=== PATIENT | male | born 1960 | race Caucasian/White ===

== ENCOUNTER 2017-03-08 21:47 | Emergency (ER) | payer OTHER ==
[~2017-03-08] VITALS: Ht 177.8 cm; Wt 106.1 kg
[~2017-03-08 21:47] MED LIST: ASPI81TA82 PO; CEPH500C3 PO; CLOP75 PO; DIAB1.25 PO; FOLIPOW21 PO; GLUCTAB PO; HALO0.5T PO; OXYC-360 PO; PROP10TA26 PO; SIMV20 PO; TAB-TAB PO; VITA20002 PO
[2017-03-08 21:49] VITALS: BP 161/95; PULSE 92; RESP 16; TEMP 97.9; O2SAT 98
[2017-03-08 22:21] VITALS: BP 142/84; PULSE 84; RESP 20; O2SAT 98
[2017-03-08] MEDS ORDERED: KETOROLAC TROMETHAMINE 30 MG/ML (IVP) VIAL IVP ONE (22:30)
[2017-03-08] MEDS ORDERED: SODIUM CHLORIDE 0.9% FLUSH 10 ML FLUSH IVF PRN (22:30)
[2017-03-08] MEDS ORDERED: SODIUM CHLOR 0.9% 1000 ML INJ 1,000 ML IV SCH (22:30)
[2017-03-08] MEDS ORDERED: ONDANSETRON HCL 4 MG/2 ML VIAL IVP ONE (22:30)
[2017-03-08 22:33] LABS: AUTOMATED NEUTROPHIL # 4.4 TH/MM3 (1.8-7.7); BASOPHIL # 0.1 TH/MM3 (0-0.2); BASOPHIL % 0.9 % (0.0-2.0); EOSINOPHIL # 0.5 TH/MM3 (0-0.4); EOSINOPHIL % 6.3 % (0.0-4.0); HEMATOCRIT 46.9 % (39.0-51.0); HEMO FLAGS DIFF FINAL; LYMPHOCYTE # 1.7 TH/MM3 (1.0-4.8); MEAN CELL VOLUME 92.8 FL (80.0-100.0); MEAN CORPUSCULAR HEMOGLOBIN 31.2 PG (27.0-34.0); MEAN CORPUSCULAR HGB CONC 33.6 % (32.0-36.0); MONO % 7.6 % (0.0-8.0); NEUT % 62.2 % (16.0-70.0); PLATELET COUNT 132 TH/MM3 (150-450); RED BLOOD COUNT 5.05 MIL/MM3 (4.50-5.90); RED CELL DISTRIBUTION WIDTH 13.2 % (11.6-17.2); WHITE BLOOD COUNT 7.3 TH/MM3 (4.0-11.0)
[2017-03-08 22:46] LABS: BICARBONATE 25.6 MEQ/L (21.0-32.0)
--- NOTE | 2017-03-08 22:59 | PD ---
HPI Chief Complaint: Flank/Kidney Pain Time Seen by Provider: 22:24 Travel History International Travel<30 days: No Contact w/Intl Traveler<30days: No Traveled to known affect area: No History of Present Illness HPI 57-year-old male presents to the emergency department by private transportation complaining of left flank pain left lower quadrant abdominal pain. Patient states prior history of kidney stones. Last exacerbation was one year ago. Symptoms are right-sided 1 year ago. Patient rates pain as moderate to severe. Patient's had nausea without vomiting. Patient is diabetic and takes metformin. Patient denies known history of abdominal aortic aneurysm but has had three-vessel CABG in the past. 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 Denies fever chills. Patient has taken no medication for symptomatic relief. PFSH Past Medical History Narrative Medical CAD dyslipidemia diabetes CABG kidney stones hypertension eyes surgery alcohol use no tobacco use; nursing notes reviewed Cancer: No Cardiovascular Problems: Yes High Cholesterol: Yes Chest Pain: Yes Diabetes: Yes Patient Takes Glucophage: Yes (1800 03/08/17) Diminished Hearing: No GERD: Yes Glaucoma: No Genitourinary: No Hepatitis: No Hiatal Hernia: No Hypertension: Yes Immune Disorder: No Musculoskeletal: No Neurologic: No Psychiatric: No (DENIES) Reproductive: No Respiratory: Yes Integumentary: Yes (STERISTRIPS TO LOWER LEG INCISION SITES.) Thyroid Disease: No Tetanus Vaccination: Unknown Influenza Vaccination: No Past Surgical History Cardiac Surgery: Yes (CABG 06-05-11 BYPASS 3 VESSEL) Coronary Artery Bypass Graft: Yes Eye Surgery: Yes (2 ON LEFT EYE, 3 ON RIGHT EYE) Oral Surgery: Yes Pacemaker: No Tonsillectomy: Yes Other Surgery: Yes Social History Alcohol Use: Yes (2 DRINKS PER DAY) Tobacco Use: No Substance Use: No Allergies-Medications (Allergen,Severity, Reaction): Coded Allergies: No Known Allergies (Unverified , 03/08/17) Reported Meds & Prescriptions Reported Meds & Active Scripts Active Percocet (Oxycodone-Acetaminophen) 5-325 mg Tab 1 Tab PO Q6H PRN Phenergan (Promethazine HCl) 25 Mg Tablet 25 Mg PO Q6H PRN Flomax (Tamsulosin HCl) 0.4 Mg Cap 0.4 Mg PO HS Reported Zocor (Simvastatin) 20 Mg Tab 20 Mg PO DAILY Haloperidol 0.5 Mg Tab 0.5 Mg PO Diabeta 1.25 mg (Glyburide) 1.25 Mg Tab 1.25 Mg PO Inderal (Propranolol HCl) 10 Mg Tab 10 Mg PO BID Percocet (Oxycodone/Acetaminophen) 5 Mg/325 Mg Tab 1 Tab PO Q6HPRN FOR PAIN Aspir-81 (Aspirin) 81 Mg Tab 81 Mg PO DAILY Keflex (Cephalexin Monohydrate) 500 Mg Cap 500 Mg PO QID Vitamin D-3 (Cholecalciferol) 2 000 Tab 2,000 Unit PO DAILY Plavix (Clopidogrel Bisulfate) 75 Mg Tab 75 Mg PO DAILY [Folic Acid] 1 Mg PO DAILY Multivitamin (Multivitamins) 1 Tab Tab 1 Tab PO DAILY Glucophage XR 24 HR (Metformin HCl) 500 Mg Tab 500 Mg PO BID Review of Systems Except as stated in HPI: all other systems reviewed are Neg General / Constitutional: No: Fever, Chills HENT: No: Congestion Cardiovascular: No: Chest Pain or Discomfort Gastrointestinal: Positive: Nausea, Abdominal Pain, No: Vomiting Genitourinary: Positive: Flank Pain (left lower quadrant) Musculoskeletal: No: Myalgias, Arthralgias ( left flank) Skin: No Rash Neurologic: No: Weakness Psychiatric: No: Anxiety Endocrine: No: Heat Intolerance Hematologic/Lymphatic: No: Easy Bruising Physical Exam Narrative GENERAL: Well-developed well-nourished male in no acute distress no respiratory distress SKIN: Warm and dry. HEAD: Normocephalic. EYES: No scleral icterus. No injection or drainage. NECK: Supple, trachea midline. No JVD or lymphadenopathy. CARDIOVASCULAR: Regular rate and rhythm without murmurs, gallops, or rubs. RESPIRATORY: Breath sounds equal bilaterally. No accessory muscle use. GASTROINTESTINAL: Abdomen soft, non-tender, nondistended. No palpable pulsatile mass. MUSCULOSKELETAL: No cyanosis, or edema. BACK: Nontender without obvious deformity. Left CVA tenderness. Data Data Last Documented VS Vital Signs Date Time Temp Pulse Resp B/P Pulse Ox O2 Delivery O2 Flow Rate FiO2 03/08/17 22:21 84 20 142/84 98 03/08/17 21:49 97.9 Orders Complete Blood Count With Diff (03/08/17 22:24) Basic Metabolic Panel (Bmp) (03/08/17 22:24) Urinalysis - C+S If Indicated (03/08/17 22:24) Ct Abd/Pel W/O Iv Contrast (03/08/17 22:24) Ecg Monitoring (03/08/17 22:24) Iv Access Insert/Monitor (03/08/17 22:24) Ketorolac Inj (Toradol Inj) (03/08/17 22:30) Ondansetron Inj (Zofran Inj) (03/08/17 22:30) Sodium Chloride 0.9% Flush (Ns Flush) (03/08/17 22:30) Sodium Chlor 0.9% 1000 Ml Inj (Ns 1000 M (03/08/17 22:30) Labs Laboratory Tests Test 03/08/17 03/09/17 22:30 00:00 White Blood Count 7.3 TH/MM3 Red Blood Count 5.05 MIL/MM3 Hemoglobin 15.8 GM/DL Hematocrit 46.9 % Mean Corpuscular Volume 92.8 FL Mean Corpuscular Hemoglobin 31.2 PG Mean Corpuscular Hemoglobin 33.6 % Concent Red Cell Distribution Width 13.2 % Platelet Count 132 TH/MM3 Mean Platelet Volume 8.7 FL Neutrophils (%) (Auto) 62.2 % Lymphocytes (%) (Auto) 23.0 % Monocytes (%) (Auto) 7.6 % Eosinophils (%) (Auto) 6.3 % Basophils (%) (Auto) 0.9 % Neutrophils # (Auto) 4.4 TH/MM3 Lymphocytes # (Auto) 1.7 TH/MM3 Monocytes # (Auto) 0.6 TH/MM3 Eosinophils # (Auto) 0.5 TH/MM3 Basophils # (Auto) 0.1 TH/MM3 CBC Comment DIFF FINAL Differential Comment Sodium Level 136 MEQ/L Potassium Level 4.0 MEQ/L Chloride Level 102 MEQ/L Carbon Dioxide Level 25.6 MEQ/L Anion Gap 8 MEQ/L Blood Urea Nitrogen 15 MG/DL Creatinine 1.10 MG/DL Estimat Glomerular Filtration 69 ML/MIN Rate Random Glucose 150 MG/DL Calcium Level 8.9 MG/DL Urine Color YELLOW Urine Turbidity CLEAR Urine pH 5.5 Urine Specific [place] 1.018 Urine Protein NEG mg/dL Urine Glucose (UA) 100 mg/dL Urine Ketones TRACE mg/dL Urine Occult Blood LARGE Urine Nitrite NEG Urine Bilirubin NEG Urine Leukocyte Esterase NEG Urine RBC 25-49 /hpf Urine WBC 0-2 /hpf Urine Squamous Epithelial 0-5 /hpf Cells Urine Bacteria NONE /hpf Microscopic Urinalysis Comment CULT NOT INDICATED MDM Medical Decision Making Medical Screen Exam Complete: Yes Emergency Medical Condition: Yes Medical Record Reviewed: Yes Interpretation(s) CT abd/pel kidney stone protocol CONCLUSION: 1. 4 mm left ureterovesical junction stone with moderate left hydronephrosis 2. Appendicolith in normal size appendix Kit Fatima MD on March 08, 2017 at 23:32 Board Certified Radiologist. This report was verified electronically. CBC & BMP Diagram 03/08/17 22:30 Vital Signs Date Time Temp Pulse Resp B/P Pulse Ox O2 Delivery O2 Flow Rate FiO2 03/08/17 22:21 84 20 142/84 98 03/08/17 21:49 97.9 92 16 161/95 98 UA: Large blood culture not indicated Differential Diagnosis Renal colic, obstructive uropathy, UTI, diverticulitis, abdominal aortic aneurysm Narrative Course IV access obtained specimens collected sent for resulting urinalysis requested CT kidney stone protocol ordered patient administered Zofran 4 mg IV Toradol 30 mg IV and maintenance IV fluids CBC with automated differential and metabolic panel values grossly within normal range CT abdomen and pelvis is remarkable for 4 mm left UVJ stone with hydronephrosis and hydroureter as well as 5 mm nephrolithiasis and appendicoliths noted in a normal-sized appendix patient is asymptomatic on the right side no right lower quadrant tenderness no guarding no rebound total white cell count is in normal range with normal range automated differential no fever no chills sudden onset of symptoms which would be atypical presentation for appendicitis symptoms consistent with obstructive uropathy consistent with identified UVJ stone with hydronephrosis and hydroureter. Patient also administered a dose of Flomax 0.4 mg by mouth. Patient is stable for outpatient management encouraged to follow-up with urologist prescriptions for Flomax Phenergan and Percocet provided. Diagnosis Primary Impression: Acute unilateral obstructive uropathy Additional Impression: Left nephrolithiasis Referrals: Urologist call for appointment Patient Instructions: General Instructions Med/Other Pt SpecificInfo: Prescription(s) given Scripts Oxycodone-Acetaminophen (Percocet)5-325 mg Tab1 Tab PO Q6H PRN (PAIN) #10 TAB Ref 0 Prov:Xochitl Clement MD 03/08/17 Promethazine (Phenergan)25 Mg [id number] Mg PO Q6H PRN (NAUSEA OR VOMITING) #10 TAB Ref 0 Prov:Xochitl Clement MD 03/08/17 Tamsulosin (Flomax)0.4 Mg Cap0.4 Mg PO HS #7 CAP Ref 0 Prov:Xochitl Clement MD 03/08/17 Disposition: 01 DISCHARGE HOME Condition: Stable Xochitl Clement MD Mar 08, 2017 22:59
[2017-03-08 23:33] VITALS: BP 138/84; PULSE 84; RESP 20; O2SAT 99
--- NOTE | 2017-03-08 23:39 | RADRPT ---
EXAM DATE/TIME: 03/08/2017 22:46 [facility] COMPARISON: No previous studies available for comparison. INDICATIONS : Nausea, vomiting. Prior history of renal calculi. Left flank pain. ORAL CONTRAST: No oral contrast ingested. RADIATION DOSE: 25.63 CTDIvol (mGy) MEDICAL HISTORY : Diabetes mellitus type 2. Renal calculi. Gastroesophageal reflux disease. SURGICAL HISTORY : CABG Penile pump ENCOUNTER: Initial ACUITY: 1 day PAIN SCALE: 7/10 LOCATION: Left flank TECHNIQUE: Volumetric scanning of the abdomen and pelvis was performed. Using automated exposure control and ad justment of the mA and/or kV according to patient size, radiation dose was kept as low as reasonably achievable to obtain optimal diagnostic quality images. DICOM format image data is available electro nically for review and comparison. FINDINGS: Examination of the lung bases demonstrates no abnormality. No pleural fluid is identified. No pulmona ry nodules are present. The liver and spleen are normal in size and no focal defects are identified. There is a single stone within the gallbladder without wall thickening or pericholecystic fluid measu ring 1 mm. The pancreas demonstrates no evidence of mass and there is no dilatation of the pancreatic duct. The adrenal glands are unremarkable. There are multiple bilateral nonobstructing right renal s tones the largest measuring 5 mm. There is left hydronephrosis and hydroureter to the ureterovesical junction where there is a 4 mm stone. Examination of the pelvis demonstrates no evidence of free fluid or pelvic mass. No abnormally enlarg ed inguinal or retroperitoneal lymph nodes are present. The bladder demonstrates mild diffuse bladder wall thickening. An appendicolith is present in a normal sized appendix. Penile prosthesis is presen t with reservoir in the left hemipelvis. CONCLUSION: 1. 4 mm left ureterovesical junction stone with moderate left hydronephrosis 2. Appendicolith in normal size appendix Kit Fatima MD on March 08, 2017 at 23:32 Board Certified Radiologist. This report was verified electronically.
[2017-03-08] MEDS ORDERED: PROM25TA10 PO (23:49)
[2017-03-08] MEDS ORDERED: TAMS5CAP PO (23:49)
[2017-03-08] MEDS ORDERED: PERC5TAB12 PO (23:49)
[2017-03-09 00:26] LABS: BLOOD, URINE LARGE (NEG); GLUCOSE,URINE 100 mg/dL (NEG); KETONE, URINE TRACE mg/dL (NEG); NITRITE,URINE NEG (NEG); PH, URINE 5.5 (5.0-8.5)
[2017-03-09 00:28] LABS: URINE COLOR YELLOW (YELLW/STRAW)
[2017-03-09 00:32] LABS: COMMENT (UR) CULT NOT INDICATED; CULTURE IF INDICATED CULT NOT INDICATED; SQUAMOUS EPITHELIAL CELL URINE 0-5 /hpf (0-5); WBC, URINE 0-2 /hpf (0-5)
[2017-03-09] MEDS ORDERED: ACETAMINOPHEN/HYDROcodone 325 MG/5 MG TAB PO ONE (00:45)
[2017-03-09 01:32] VITALS: BP 118/84
== END 2017-03-09 01:40 | disposition home or self-care (01) ==
LOC: PHED 21:47
DX: N13.2 Hydronephrosis with renal and ureteral calculous obstruction (principal); K38.1 Appendicular concretions; E11.9 Type 2 diabetes mellitus without complications; I10 Essential (primary) hypertension; Z79.02 Long term (current) use of antithrombotics/antiplatelets; Z79.82 Long term (current) use of aspirin; Z79.84 Long term (current) use of oral hypoglycemic drugs
CPT/HCPCS: 74176; 80048; 81001; 85025; 96361; 96374; 96375; 99285; J1885; J2405; J7030

== ENCOUNTER 2017-10-17 15:48 | Emergency (ER) | payer OTHER ==
[~2017-10-17] VITALS: Ht 177.8 cm; Wt 102.0 kg
[~2017-10-17 15:48] MED LIST changes: -ASPI81TA82 PO; -CEPH500C3 PO; +PERC5TAB12 PO; +PROM25TA10 PO; +TAMS5CAP PO
[2017-10-17 15:54] VITALS: BP 145/86; PULSE 117; RESP 16; TEMP 97.3; O2SAT 98
[2017-10-17] MEDS ORDERED: OMEP20TA93 PO (16:10)
[2017-10-17] MEDS ORDERED: ATOR20TA15 PO (16:10)
[2017-10-17] MEDS ORDERED: METF500T PO (16:10)
[2017-10-17] MEDS ORDERED: SODIUM CHLOR 0.9% 1000 ML INJ 1,000 ML IV SCH (16:14)
[2017-10-17] MEDS ORDERED: ONDANSETRON HCL 4 MG/2 ML VIAL IVP ONE (16:15)
[2017-10-17] MEDS ORDERED: SODIUM CHLORIDE 0.9% FLUSH 10 ML FLUSH IV FLUSH PRN (16:15)
[2017-10-17] MEDS ORDERED: ALUMINUM/MAGNESIUM/SIMETH 30 ML CUP PO ONE (16:15)
[2017-10-17] MEDS ORDERED: MORPHINE SULFATE 8 MG/ML INJ IV PUSH ONE (16:15)
[2017-10-17] MEDS ORDERED: LIDOCAINE VISCOUS 2% SOLN 15 ML UDC PO ONE (16:15)
--- NOTE | 2017-10-17 16:17 | PD ---
HPI Chief Complaint: GI Complaint Time Seen by Provider: 15:57 Travel History International Travel<30 days: No Contact w/Intl Traveler<30days: No Traveled to known affect area: No History of Present Illness HPI Patient is a 57-year-old male with a history of pancreatitis he thinks from too much alcohol which was one episode years ago presents emergency department with nausea vomiting diarrhea burning epigastric discomfort since the middle the night last night. Patient states hurting him when he takes a deep breath but identifies the pain is localized to the epigastric region below the diaphragm. Patient is blind but states he did not taste any blood in his emesis, is covered by his friend. He states the pain is discomfort is been gradually worsening all day, moderate in intensity, epigastric, no radiation, associated signs and symptoms in context as above PFSH Past Medical History Cancer: No Cardiovascular Problems: Yes High Cholesterol: Yes Chest Pain: Yes Diabetes: Yes Patient Takes Glucophage: Yes Diminished Hearing: No GERD: Yes Glaucoma: No Genitourinary: No Hepatitis: No Hiatal Hernia: No Hypertension: Yes Immune Disorder: No Musculoskeletal: No Neurologic: No Psychiatric: No (DENIES) Reproductive: No Respiratory: Yes Integumentary: Yes (STERISTRIPS TO LOWER LEG INCISION SITES.) Thyroid Disease: No Past Surgical History Cardiac Surgery: Yes (CABG 06-05-11 BYPASS 3 VESSEL) Coronary Artery Bypass Graft: Yes Eye Surgery: Yes (2 ON LEFT EYE, 3 ON RIGHT EYE) Genitourinary Surgery: Yes (penile implant) Oral Surgery: Yes Pacemaker: No Tonsillectomy: Yes Other Surgery: Yes Social History Alcohol Use: Yes (2 DRINKS PER DAY) Tobacco Use: No (quit 7 years ago ) Substance Use: No Allergies-Medications (Allergen,Severity, Reaction): Coded Allergies: No Known Allergies (Unverified Adverse Reaction, Unknown, 10/17/17) Reported Meds & Prescriptions Reported Meds & Active Scripts Active Zofran Odt (Ondansetron Odt) 4 Mg Tab 4 Mg SL Q6HR PRN Reported Omeprazole 20 Mg Tab 20 Mg PO DAILY Atorvastatin (Atorvastatin Calcium) 20 Mg Tab 20 Mg PO HS Metformin (Metformin HCl) 500 Mg Tab 500 Mg PO BIDPC Review of Systems Except as stated in HPI: all other systems reviewed are Neg Physical Exam Narrative GENERAL: Well-developed, well-nourished, appears uncomfortable peer SKIN: Focused skin assessment warm/dry. HEAD: Atraumatic. Normocephalic. EYES: Not examined, patient is blind. ENT: No nasal bleeding or discharge. Mucous membranes pink and moist. NECK: Trachea midline. No JVD. CARDIOVASCULAR: regular rhythm with mild tachycardia no murmur appreciated. RESPIRATORY: No accessory muscle use. Clear to auscultation. Breath sounds equal bilaterally. GASTROINTESTINAL: Abdomen soft, non-tender, nondistended. Hepatic and splenic margins not palpable. MUSCULOSKELETAL: No obvious deformities. No clubbing. No cyanosis. No edema. NEUROLOGICAL: Awake and alert. Complete blindness. Motor grossly within normal limits. Normal speech. PSYCHIATRIC: Appropriate mood and affect; insight and judgment normal. Data Data Last Documented VS Vital Signs Date Time Temp Pulse Resp B/P (MAP) Pulse Ox O2 Delivery O2 Flow Rate FiO2 10/17/17 19:26 86 16 140/74 (96) 99 10/17/17 17:16 Room Air 10/17/17 15:54 97.3 Orders Orders Complete Blood Count With Diff (10/17/17 16:14) Comprehensive Metabolic Panel (10/17/17 16:14) Lipase (10/17/17 16:14) Iv Access Insert/Monitor (10/17/17 16:14) Ecg Monitoring (10/17/17 16:14) Oximetry (10/17/17 16:14) Ondansetron Inj (Zofran Inj) (10/17/17 16:15) Sodium Chlor 0.9% 1000 Ml Inj (Ns 1000 M (10/17/17 16:14) Sodium Chloride 0.9% Flush (Ns Flush) (10/17/17 16:15) Electrocardiogram (10/17/17 16:14) Morphine Inj (Morphine Inj) (10/17/17 16:15) Al-Mag Hy-Si 40-40-4 Mg/Ml Liq (Mag-Al P (10/17/17 16:15) Lidocaine 2% Viscous (Xylocaine 2% Visco (10/17/17 16:15) Troponin I (10/17/17 16:27) Sodium Chlor 0.9% 1000 Ml Inj (Ns 1000 M (10/17/17 17:45) Ed Discharge Order (10/17/17 18:56) Labs Laboratory Tests Test 10/17/17 16:18 White Blood Count 13.9 TH/MM3 Red Blood Count 4.96 MIL/MM3 Hemoglobin 16.2 GM/DL Hematocrit 46.2 % Mean Corpuscular Volume 93.0 FL Mean Corpuscular Hemoglobin 32.5 PG Mean Corpuscular Hemoglobin Concent 35.0 % Red Cell Distribution Width 13.4 % Platelet Count 139 TH/MM3 Mean Platelet Volume 8.7 FL Neutrophils (%) (Auto) 87.6 % Lymphocytes (%) (Auto) 6.0 % Monocytes (%) (Auto) 5.1 % Eosinophils (%) (Auto) 0.1 % Basophils (%) (Auto) 1.2 % Neutrophils # (Auto) 12.2 TH/MM3 Lymphocytes # (Auto) 0.8 TH/MM3 Monocytes # (Auto) 0.7 TH/MM3 Eosinophils # (Auto) 0.0 TH/MM3 Basophils # (Auto) 0.2 TH/MM3 CBC Comment DIFF FINAL Differential Comment Blood Urea Nitrogen 14 MG/DL Creatinine 1.00 MG/DL Random Glucose 187 MG/DL Total Protein 8.1 GM/DL Albumin 4.5 GM/DL Calcium Level 10.0 MG/DL Alkaline Phosphatase 52 U/L Aspartate Amino Transf (AST/SGOT) 27 U/L Alanine Aminotransferase (ALT/SGPT) 65 U/L Total Bilirubin 0.9 MG/DL Sodium Level 143 MEQ/L Potassium Level 3.8 MEQ/L Chloride Level 98 MEQ/L Carbon Dioxide Level 25.9 MEQ/L Anion Gap 19 MEQ/L Estimat Glomerular Filtration Rate 78 ML/MIN Troponin I LESS THAN 0.02 NG/ML Lipase 52 U/L MDM Medical Decision Making Medical Screen Exam Complete: Yes Emergency Medical Condition: Yes Differential Diagnosis Pancreatitis, gastritis, gastroenteritis, dehydration, electrolyte abnormality, acute abdomen highly unlikely. Narrative Course Patient was room to the emergency department, mildly tachycardic but otherwise his abdominal exam is benign, is given 2 L normal saline, his labs are reassuring. Patient after medication was feeling much better, I discussed with him differential diagnosis includes viral gastroenteritis, is benign abdomen and reassuring labs preclude the need for additional workup at this time. Discussed with him return to ED criteria follow-up with his primary care physician and symptomatic management. He is stable for discharge Diagnosis Primary Impression: Nausea & vomiting Additional Impression: Diarrhea Med/Other Pt SpecificInfo: Prescription(s) given Scripts Ondansetron Odt (Zofran Odt) 4 Mg Tab 4 MG SL Q6HR Y for Nausea/Vomiting, #20 TAB 0 Refills Prov: Yassine Loredo MD 10/17/17 Disposition: 01 DISCHARGE HOME Condition: Stable Yassine Loredo MD Oct 17, 2017 16:17
[2017-10-17 16:25] LABS: AUTOMATED NEUTROPHIL # 12.2 TH/MM3 (1.8-7.7); BASOPHIL # 0.2 TH/MM3 (0-0.2); BASOPHIL % 1.2 % (0.0-2.0); EOSINOPHIL % 0.1 % (0.0-4.0); HEMATOCRIT 46.2 % (39.0-51.0); HEMOGLOBIN 16.2 GM/DL (13.0-17.0); LYMPHOCYTE # 0.8 TH/MM3 (1.0-4.8); MEAN CORPUSCULAR HEMOGLOBIN 32.5 PG (27.0-34.0); MEAN PLATELET VOLUME 8.7 FL (7.0-11.0); MONO % 5.1 % (0.0-8.0); MONOCYTE # 0.7 TH/MM3 (0-0.9); NEUT % 87.6 % (16.0-70.0); PLATELET COUNT 139 TH/MM3 (150-450); RED BLOOD COUNT 4.96 MIL/MM3 (4.50-5.90); RED CELL DISTRIBUTION WIDTH 13.4 % (11.6-17.2); WHITE BLOOD COUNT 13.9 TH/MM3 (4.0-11.0)
[2017-10-17 16:33] VITALS: O2SAT 98
[2017-10-17 16:37] LABS: CHLORIDE 98 MEQ/L (98-107); SODIUM (NA) 143 MEQ/L (136-145)
[2017-10-17 16:41] LABS: ALBUMIN 4.5 GM/DL (3.4-5.0); BICARBONATE 25.9 MEQ/L (21.0-32.0); BLOOD UREA NITROGEN 14 MG/DL (7-18); GLUCOSE,RANDOM 187 MG/DL (74-106)
[2017-10-17 16:43] LABS: ALT (GPT) 65 U/L (12-78); AST (GOT) 27 U/L (15-37)
[2017-10-17 16:44] LABS: GLOMERULAR FILTRATION RATE 78 ML/MIN (>89)
[2017-10-17 16:45] LABS: TOTAL BILIRUBIN ADULT 0.9 MG/DL (0.2-1.0); TOTAL PROTEIN 8.1 GM/DL (6.4-8.2)
[2017-10-17 16:46] LABS: ALKALINE PHOSPHATASE 52 U/L (45-117)
[2017-10-17 17:16] VITALS: BP 135/76; PULSE 100; RESP 18; O2SAT 96
[2017-10-17] MEDS ORDERED: SODIUM CHLOR 0.9% 1000 ML INJ 1,000 ML IV ONE (17:45)
[2017-10-17] MEDS ORDERED: ZOFR4TAB3 SL (18:56)
[2017-10-17 19:26] VITALS: BP 140/74
--- NOTE | 2017-10-18 13:48 | EKG ---
Date Performed: 10/17/2017 Time Performed: 16:24:08 PTAGE: 57 years EKG: SINUS TACHYCARDIA INTRAVENTRICULAR CONDUCTION DELAY ABNORMAL ECG Nonspecific ST and T wave abnormalities Clinical correlation will be important as there is no prior tracing NO PREVIOUS TRACING DOCTOR: Sara Poe Interpretating Date/Time 10/18/2017 13:47:02
== END 2017-10-17 19:38 | disposition home or self-care (01) ==
LOC: PHED 15:48
DX: R11.2 Nausea with vomiting, unspecified (principal); R19.7 Diarrhea, unspecified; E11.9 Type 2 diabetes mellitus without complications; E78.00 Pure hypercholesterolemia, unspecified; K21.9 Gastro-esophageal reflux disease without esophagitis; R00.0 Tachycardia, unspecified; Z79.84 Long term (current) use of oral hypoglycemic drugs
CPT/HCPCS: 80053; 83690; 84484; 85025; 93005; 96361; 96374; 96375; 99284; J2270; J2405; J7030